=== PATIENT | male | born 1965 | race Caucasian/White ===

== ENCOUNTER 2025-08-24 18:22 | Emergency (ER) | payer MEDICAID ==
[~2025-08-24] VITALS: Ht 180.3 cm; Wt 149.2 kg
[2025-08-24] MEDS ORDERED: KETOROLAC TROMETHAMINE 15 MG/ML VIAL ONE (19:20)
[2025-08-24] MEDS: IV NS 0.9% 1,000 ML BAG IV ONE ×2 (19:30→23:13)
[2025-08-24] MEDS: KETOROLAC TROMETHAMINE 15 MG/ML VIAL IV ONE (19:31)
[2025-08-24 19:42] LABS: PLATELET COUNT (AUTO) 252 K/uL (150-450); RED BLOOD CELL COUNT(AUTO) 4.74 MIL/uL (4.5-6.0); RED CELL DISTRIBUTION WIDTH 17.7 % (11.5-15.0); WHITE BLOOD COUNT (AUTO) 4.5 K/uL (4.3-11.0)
[2025-08-24 19:44] LABS: APPEARANCE,URINE CLEAR (CLEAR); BLOOD, URINE NEGATIVE Ery/uL (NEGATIVE); LEUKOCYTE ESTERASE ,URINE NEGATIVE (NEGATIVE); NITRITE, URINE NEGATIVE (NEGATIVE); UGLUCOSE NEGATIVE (NEGATIVE)
[2025-08-24 19:50] LABS: ADD URINE CULTURE NO; SQUAMOUS EPITHELIAL CELL,UR None Seen /HPF (None Seen)
[2025-08-24 19:56] LABS: ASPARTATE AMINOTRANSFERASE 39.0 U/L (15-37); CALCIUM, SERUM 9.4 mg/dL (8.5-10.1); CREATININE 2.0 mg/dL (0.6-1.3); SODIUM SERUM 135.0 mmol/L (136-145); TOTAL PROTEIN, SERUM 8.2 g/dL (6.4-8.2); UREA NITROGEN, BLOOD 13.0 mg/dL (7-18)
[2025-08-24] MEDS ORDERED: POLYETHYLENE GLYCOL 3350 17 GM POWD.PACK ONE (23:08)
[2025-08-24] MEDS: POLYETHYLENE GLYCOL 3350 17 GM POWD.PACK PO ONE (23:13)
[2025-08-25 05:53] VITALS: TEMP 98
[2025-08-25 09:13] VITALS: BP 130/78; O2SAT 97
== END 2025-08-25 09:24 | disposition short-term general hospital (02) ==
LOC: ER 18:33
DX: R33.9 Retention of urine, unspecified (principal); K59.00 Constipation, unspecified; I11.9 Hypertensive heart disease without heart failure; E11.9 Type 2 diabetes mellitus without complications; J44.9 Chronic obstructive pulmonary disease, unspecified; K42.9 Umbilical hernia without obstruction or gangrene; N17.9 Acute kidney failure, unspecified; Z90.49 Acquired absence of other specified parts of digestive tract
CPT/HCPCS: 99285; 74176; 96374; 96361; 51702; 85025; 80048; 83690; 80076; 81001; 36415; J1885; J7030; 87086-TC